=== PATIENT | female | born 1970 | race Caucasian/White ===

== ENCOUNTER → 2018-09-15 | Outpatient (REF) | payer BC ==
[2018-09-15 12:38] LABS: BASO # 0.1 10^3/uL (0.0-0.2); BASO % 0.8 % (0.0-1.0); EOS # 0.2 10^3/uL (0.0-0.50); HEMATOCRIT 41.4 % (36.0-47.0); HEMOGLOBIN 13.7 g/dl (12.0-15.5); MEAN CORPUSCULAR HEMOGLOBIN 29.7 pg (27.0-33.0); MEAN CORPUSCULAR HGB CONC 33.1 g/dl (32.0-36.5); MEAN CORPUSCULAR VOLUME 89.6 fl (80.0-96.0); MONO # 0.4 10^3/uL (0.0-0.8); MONO % 5.5 % (0.0-5.0); NEUTROPHILS # 4.2 10^3/uL (1.8-7.7); NEUTROPHILS % 52.4 % (36.0-66.0); PLATELET COUNT, AUTOMATED 372 10^3/uL (150-450); RED BLOOD COUNT 4.62 10^6/uL (4.00-5.40)
[2018-09-15 12:53] LABS: ALBUMIN 3.8 GM/DL (3.2-5.2); ALT/SGPT 25 U/L (12-78); BILIRUBIN,TOTAL 0.3 MG/DL (0.2-1.0); BLOOD UREA NITROGEN 13 MG/DL (7-18); CALCIUM LEVEL 9.1 MG/DL (8.5-10.1); CARBON DIOXIDE LEVEL 28 MEQ/L (21-32); CHLORIDE LEVEL 104 MEQ/L (98-107); CHOLESTEROL LEVEL 231 MG/DL (<200); CHOLESTEROL RISK RATIO 3.397 (<5); CREATININE FOR GFR 0.76 MG/DL (0.55-1.30); GLOMERULAR FILTRATION RATE > 60.0 (>51); GLUCOSE, FASTING 82 MG/DL (70-100); HDL CHOLESTEROL 68 MG/DL (>40); LDL CHOLESTEROL 149 MG/DL (<100); NON-HDL-C 163 MG/DL; POTASSIUM SERUM 4.5 MEQ/L (3.5-5.1); SODIUM LEVEL 141 MEQ/L (136-145); TRIGLYCERIDES LEVEL 70 MG/DL (<150)
== END ==
LOC: M LABDRAW1 12:07
PROVIDERS: ATTEND Family Medicine
DX: Z00.00 Encounter for general adult medical examination without abnormal findings (principal)

== ENCOUNTER → 2018-10-13 | Outpatient (CLI) | payer BC | LOC: M WUC 15:22 | PROVIDERS: ATTEND Family Medicine | DX: F32.1 Major depressive disorder, single episode, moderate (principal); E55.9 Vitamin D deficiency, unspecified ==

== ENCOUNTER → 2019-02-23 | Outpatient (CLI) | payer BC ==
[2019-02-23 20:11] LABS: BASO # 0.1 10^3/uL (0.0-0.2); BASO % 0.6 % (0.0-1.0); EOS # 0.4 10^3/uL (0.0-0.50); EOS % 3.8 % (0.0-3.0); HEMATOCRIT 40.1 % (36.0-47.0); HEMOGLOBIN 12.9 g/dl (12.0-15.5); LYMPH # 3.7 10^3/uL (1.5-4.5); LYMPH % 38.7 % (24.0-44.0); MEAN CORPUSCULAR HEMOGLOBIN 29.3 pg (27.0-33.0); MEAN CORPUSCULAR HGB CONC 32.2 g/dl (32.0-36.5); MEAN CORPUSCULAR VOLUME 91.1 fl (80.0-96.0); MONO # 0.4 10^3/uL (0.0-0.8); MONO % 4.2 % (0.0-5.0); NEUTROPHILS # 4.9 10^3/uL (1.8-7.7); NEUTROPHILS % 52.5 % (36.0-66.0); PLATELET COUNT, AUTOMATED 360 10^3/uL (150-450); WHITE BLOOD COUNT 9.4 10^3/uL (4.0-10.0)
[2019-02-23 20:25] LABS: RHEUMATOID FACTOR QUANT < 10.0 IU/ML (<15.0); URIC ACID 4.1 MG/DL (2.6-6.0)
[2019-02-23 20:50] LABS: ERYTHROCYTE SEDIMENTATION RATE 12 mm/hr (0-30)
[2019-02-28 14:47] LABS: ANTINUCLEAR ANTIBODIES DIRECT Negative (Negative); HLA-B27 Positive (.); Lyme Disease IgG/IgM Antibodie <0.91 ISR (0.00-0.90); Lyme Disease IgM Ab Quantitati <0.80 index (0.00-0.79)
== END ==
LOC: M WUC 15:23
PROVIDERS: ATTEND Family Medicine
DX: M12.9 Arthropathy, unspecified (principal)

== ENCOUNTER → 2019-07-17 | Outpatient (CLI) | payer BC ==
--- NOTE | 2019-07-18 03:42 | REP ---
Clinical: Pain. Technique: Single frontal view of the pelvis. Findings: The bilateral sacroiliac joints are relatively symmetric and age appropriate. No periarticular erosive changes or osteophyte formation is appreciated. Hip joints appear symmetric and normal. No acute fracture or dislocation. Phleboliths noted in the pelvis. Impression: Essentially age-appropriate examination of the pelvis. Electronically Signed by Dagoberto Miguel MD 07/18/2019 03:33 A
--- NOTE | 2019-07-18 03:51 | REP ---
Clinical: Sacroiliac pain. Technique: AP and lateral views of the lumbosacral spine. Findings: Mild/early moderate multilevel degenerative changes includes endplate sclerosis, hypertrophic facet changes, and elements of disc space narrowing predominantly involving L5-S1 and L4-5. Alignment and lordosis maintained. No acute fracture / compression injury or subluxation. Impression: Age-related changes as above. Electronically Signed by Dagoberto Miguel MD 07/18/2019 03:43 A
== END ==
LOC: M LAB 10:14
PROVIDERS: ATTEND Internal Medicine Rheumatology
DX: M51.36 Other intervertebral disc degeneration, lumbar region (principal); M51.37 Other intervertebral disc degeneration, lumbosacral region; M53.3 Sacrococcygeal disorders, not elsewhere classified; L98.9 Disorder of the skin and subcutaneous tissue, unspecified

== ENCOUNTER → 2019-09-21 | Outpatient (CLI) | payer BC ==
--- NOTE | 2019-09-21 11:53 | REP ---
MRI PELVIS WITHOUT CONTRAST: HISTORY: Chronic pain in the low back, left hip and buttock, and anterior pelvis. TECHNIQUE: Axial, coronal and sagittal imaging planes were utilized. T1- and T2-weighted scans were included with and without fat saturation. MRI FINDINGS: Cortical and medullary bone signal intensity are normal in the proximal femurs, the bony pelvic ring, and the sacrum. There is no evidence of avascular necrosis or sacral ileitis. The symphysis pubis is unremarkable as well. There is subcortical cyst formation in the right iliac bone at the level of the acetabulum consistent with mild arthritis associated cyst at the right hip. This subcortical cyst measures 10 mm in greatest diameter. There is no evidence of significant hip joint effusion. There is some edema in the soft tissues adjacent to the greater trochanters bilaterally which may reflect peritrochanteric tendonitis or bursitis. There is similar edema adjacent to the right ischium. The hamstring insertion tendons appear intact. Urinary bladder is unremarkable. No presacral or retro-sacral soft tissue mass is seen. No bony destructive lesion is seen. There are two sizable fibroids extending from the posterior subserosal surface of the uterus. The largest of these measures 5.9 x 5.6 x 5.8 cm in diameter. The smaller lesion is higher near the fundus measuring 3.2 x 2.8 x 3.2 cm. Endometrial complex is unremarkable. There is a small quantity of cul-de-sac fluid adjacent to the fibroids. On T2-weighted scans, there is a 1.5 cm follicle cyst in the left ovary, which is otherwise unremarkable. The right ovary contains a complex cyst 1.6 cm in diameter and a tiny follicle. No significant ovarian lesion is appreciated on either side. No pelvic mass or adenopathy is seen. No abdominal wall defect is seen. No inguinal adenopathy is observed. IMPRESSION: Fibroid uterus with one large and one medium-sized uterine fibroid positioned posteriorly. Small amount of fluid in the cul-de-sac. Subcortical cyst in the right acetabulum consistent with mild osteoarthritis of the right hip. Peritrochanteric edema consistent with tendonitis or bursitis changes. Electronically Signed by Deonte Mcgee MD 09/22/2019 05:13 A
== END ==
LOC: M RAD 07:09
PROVIDERS: ATTEND Internal Medicine Rheumatology
DX: M54.5 Low back pain (principal)

== ENCOUNTER → 2019-11-05 | Outpatient (CLI) | payer BC ==
--- NOTE | 2019-11-05 10:32 | REP ---
Right hand four views: Mineralization is normal. There is mild PIP and DIP joint space narrowing. The MCP joints and carpal joints are unremarkable. There are no calcifications. No fracture or dislocation. Impression: PIP and DIP mild joint space narrowing. Left hand four views: There is mild PIP and DIP joint space narrowing. The MCP joints and carpal joints are unremarkable. Mineralization is normal. There are no calcifications. No fracture or dislocation. Impression: PIP and DIP mild joint space narrowing. Electronically Signed by Blaze Elizalde MD 11/05/2019 10:23 A
--- NOTE | 2019-11-05 10:33 | REP ---
Right foot four views : There is no fracture or dislocation. Mineralization and joint spaces are normal. There are no calcifications or foreign bodies. There is a small calcaneal plantar spur. Impression: Negative right foot Left foot four views : There is no fracture or dislocation. Mineralization and joint spaces are normal. There are no calcifications or foreign bodies. There is a small calcaneal plantar spur. Impression: Negative left foot . . Electronically Signed by Blaze Elizalde MD 11/05/2019 10:25 A
== END ==
LOC: M WUC 09:31
PROVIDERS: ATTEND Internal Medicine
DX: M25.50 Pain in unspecified joint (principal)

== ENCOUNTER → 2019-11-19 | Outpatient (CLI) | payer BC ==
--- NOTE | 2019-11-19 07:53 | REPVR ---
PROCEDURE INFORMATION: Exam: MR Lumbar Spine Without Contrast. Exam date and time: 11/19/2019 6:50 AM Age: 49 years old Clinical indication: Low back pain; Additional info: Lumbar radiculopathy TECHNIQUE: Imaging protocol: Multiplanar magnetic resonance images of the lumbar spine without intravenous contrast. COMPARISON: CR Spine, Lumbosacral, partial 07/17/2019 11:01 AM FINDINGS: Vertebrae: Alignment is essentially anatomic. The vertebral body heights are maintained. No compression fracture. No suspicious marrow replacing lesions. Spinal cord: The demonstrated cord is normal in signal intensity. The conus medullaris terminates normally. L1-L2: No disc herniation or stenosis. Facets intact. L2-L3: No disc herniation or stenosis. Facets intact. L3-L4: No disc herniation or stenosis. Mild facet degenerative change. The exiting and traversing roots normally demonstrated. L4-L5: Disc desiccation. Annular bulging asymmetric toward the inferior neural foramen on the right with associated annular fissure. The exiting L4 roots are demonstrated and not displaced. The traversing roots are normally demonstrated. Mild to moderate facet degenerative change with ligamentous infolding but epidural fat remains anterolateral and posterior to the sac. L5-S1: Disc desiccation. Left central extruded disc herniation migrating inferiorly into the left lateral recess displacing the traversing roots on the left. The traversing right S1 root is normally seen. The exiting L5 roots are demonstrated. Moderate facet degenerative change with mild ligamentous infolding. No bony stenosis. Soft tissues: No paraspinal soft tissue mass. IMPRESSION: 1. At L5-S1, left central extruded disc herniation migrating inferiorly into the left lateral recess displacing the traversing roots on the left. Moderate facet degenerative change with mild ligamentous infolding. No bony stenosis. 2. At L4-L5, annular bulging asymmetric toward the inferior neural foramen on the right with associated annular fissure. The exiting L4 roots are demonstrated and not displaced. The traversing roots are normally demonstrated. Electronically signed by: Dagoberto Linares On 11/19/2019 07:53:11 AM
== END ==
LOC: M RAD 06:46
PROVIDERS: ATTEND Internal Medicine
DX: M51.26 Other intervertebral disc displacement, lumbar region (principal); M54.16 Radiculopathy, lumbar region

== ENCOUNTER → 2020-02-11 | Outpatient (CLI) | payer BC ==
[2020-02-11 12:05] LABS: ALBUMIN 4.1 GM/DL (3.2-5.2); ALT/SGPT 24 U/L (12-78); BILIRUBIN,TOTAL 0.3 MG/DL (0.2-1.0); BLOOD UREA NITROGEN 6 MG/DL (7-18); CALCIUM LEVEL 9.8 MG/DL (8.5-10.1); CARBON DIOXIDE LEVEL 30 MEQ/L (21-32); CHLORIDE LEVEL 105 MEQ/L (98-107); CHOLESTEROL LEVEL 264 MG/DL (<200); CREATININE FOR GFR 0.89 MG/DL (0.55-1.30); GLOMERULAR FILTRATION RATE > 60.0 (>51); GLUCOSE, FASTING 92 MG/DL (70-100); HDL CHOLESTEROL 60 MG/DL (>40); LDL CHOLESTEROL 177 MG/DL (<100); NON-HDL-C 204 MG/DL; POTASSIUM SERUM 4.9 MEQ/L (3.5-5.1); SODIUM LEVEL 142 MEQ/L (136-145); TOTAL 25(OH) VITAMIN D 54.9 NG/ML (30.0-100.0); TOTAL PROTEIN 7.7 GM/DL (6.4-8.2); TRIGLYCERIDES LEVEL 134 MG/DL (<150)
== END ==
LOC: M WUC 09:56
PROVIDERS: ATTEND Physician Assistant
DX: Z00.00 Encounter for general adult medical examination without abnormal findings (principal); E55.9 Vitamin D deficiency, unspecified; R53.83 Other fatigue

== ENCOUNTER → 2020-02-11 | Outpatient (CLI) | payer BC ==
--- NOTE | 2020-02-18 09:36 | SLEEPHOME ---
DATE OF STUDY: 02/11/2020 ORDERED BY: SUSI Navarrete Diagnostic home sleep testing was performed due to concern for the obstructive sleep apnea syndrome in this patient with a history of fatigue. For testing, a nocturnal T3 respiratory monitoring device was used. Continuous record was made of pulse, oxygen saturation, airflow, chest and abdominal strain and body position. 9 hours of data were reviewed. There were 5 hours and 7 minutes marked as time in bed. During the interval marked time in bed, there were 75 respiratory events identified of 10 seconds in duration or greater for a respiratory event index of 14.7. The events were primarily obstructive, baseline 20. Mixed and central apneas were seen. Baseline pulse rate 76 beats per minute, pulse rate ranged 67-94. Baseline saturation 94%, saturations fell to 89%. Testing was performed in both the supine and nonsupine positions. IMPRESSION: Abnormal home sleep testing with repetitive respiratory events and oxygen desaturations to 89% with a respiratory event index of 14.7 is consistent with the obstructive sleep apnea syndrome. RECOMMENDATION: The patient should be encouraged to undergo formal sleep evaluation.
== END ==
LOC: M SLEEP HO 10:22
PROVIDERS: ATTEND Physician Assistant
DX: R53.83 Other fatigue (principal); G47.9 Sleep disorder, unspecified

== ENCOUNTER 2020-11-17 16:01 | Emergency (ER) | payer OTHER, BC ==
[~2020-11-17] VITALS: Ht 175.3 cm; Wt 86.9 kg
[2020-11-17] MEDS ORDERED: BUPR300T92 (16:31)
[2020-11-17] MEDS ORDERED: MELO7.5T35 (16:31)
[2020-11-17] MEDS ORDERED: ESCITALOPRAM (16:31)
[2020-11-17] MEDS ORDERED: PROG1CAP9 (16:31)
[2020-11-17] MEDS ORDERED: GABA-282 (16:31)
[2020-11-17] MEDS ORDERED: MORPHINE 4 MG/ML 1ML VIAL/SYRINGE (J2270) IV ONE (16:50)
[2020-11-17] MEDS ORDERED: LIDOCAINE 1% MDV 20ML VIAL SC ONE (18:10)
--- NOTE | 2020-11-17 18:26 | REP ---
INDICATION: [facility]. COMPARISON: None. TECHNIQUE: Three views of the left hand are provided. FINDINGS: There are dislocations of the PIP joints of the left 3rd and 4th digits with dorsal displacement of the middle phalanges and some dorsal overriding. No fracture is evident on these radiographs. Overall mineralization pattern is normal. There is minimal osteoarthritic spurring at the DIP joint of the small finger. IMPRESSION: Dorsal dislocation of the PIP joints of the 3rd and 4th digits. No visible fracture. <Electronically signed by Billy Mcgee > 11/17/20 [id number]
[2020-11-17 19:28] VITALS: BP 162/83
--- NOTE | 2020-11-18 11:42 | REP ---
INDICATION: post reduction xray COMPARISON: 11/17/2020, 11/05/2019. TECHNIQUE: Four views left 3rd and 4th digits. FINDINGS: There is successful reduction of the dislocations at the 3rd and 4th proximal interphalangeal joints. No acute fracture is seen. A small smoothly marginated calcific density at the anterior base of the 3rd distal phalanx is unchanged since 11/05/2019 and may represent an old avulsion fracture. IMPRESSION: Successful reduction of the dislocations at the 3rd and 4th proximal interphalangeal joints. No acute fracture. Preliminary report provided by [facility] at the time of the exam. <Electronically signed by Blaze Aguilar > 11/18/20 [id number]
== END 2020-11-17 22:34 | disposition home or self-care (01) ==
LOC: M ED 16:01
DX: S63.253A Unspecified dislocation of left middle finger, initial encounter (principal); S63.255A Unspecified dislocation of left ring finger, initial encounter; S61.205A Unspecified open wound of left ring finger without damage to nail, initial encounter; W01.0XXA Fall on same level from slipping, tripping and stumbling without subsequent striking against object, initial encounter; Y92.018 Other place in single-family (private) house as the place of occurrence of the external cause; F17.210 Nicotine dependence, cigarettes, uncomplicated
CPT/HCPCS: 26770; 73140; 96374; 99283; J2270

== ENCOUNTER → 2020-12-01 | Outpatient (CLI) | payer OTHER, BC ==
[~2020-12-01] MED LIST: BUPR300T92; ESCITALOPRAM; GABA-282; MELO7.5T35; PROG1CAP9
--- NOTE | 2020-12-01 12:12 | REP ---
INDICATION: F/U FX. COMPARISON: Bilateral hand series dated 09/04/2020. TECHNIQUE: There are four views of the left middle and ring fingers. FINDINGS: On the lateral view of the middle finger there is a small calcification anterior to the DIP joint line. This is unchanged from the prior study and can represent an old avulsion or an accessory ossicle. The DIP and PIP joints of the left ring and middle fingers are mildly narrowed, as previously, compatible with early osteoarthritic change. There are no other calcifications. No fracture or dislocation. The MC P articulations are unremarkable and unchanged. IMPRESSION: Old avulsion versus accessory ossicle along the anterior joint line of the middle finger DIP, unchanged. Narrowing of the DIP and PIP joint spaces compatible with early osteoarthritic change. <Electronically signed by Blaze Elizalde > 12/01/20 [id number]
== END ==
LOC: M SOG 10:48
PROVIDERS: ATTEND Orthopaedic Surgery Sports Medicine
DX: S63.233A Subluxation of proximal interphalangeal joint of left middle finger, initial encounter (principal); X58.XXXA Exposure to other specified factors, initial encounter; Y92.29 Other specified public building as the place of occurrence of the external cause; Y93.9 Activity, unspecified; Y99.9 Unspecified external cause status

== ENCOUNTER → 2020-12-19 | Outpatient (CLI) | payer OTHER, BC ==
--- NOTE | 2020-12-19 09:17 | REP ---
INDICATION: F/U. COMPARISON: 12/01/2020 TECHNIQUE: AP, lateral, bilateral oblique views of the left 3rd and 4th digits. FINDINGS: There is no evidence for acute fracture or dislocation. Small calcified density along the volar aspect of the 3rd digit DIP joint remains unchanged from prior examination and is likely chronic. Small calcification along the volar aspect of the 3rd digit PIP joint is nonspecific and may represent old fracture fragment. IMPRESSION: No evidence for acute fracture or dislocation. <Electronically signed by Dagoberto Miguel > 12/19/20 0914
== END ==
LOC: M SOG 08:37
PROVIDERS: ATTEND Orthopaedic Surgery Sports Medicine
DX: M25.551 Pain in right hip (principal); S63.283D Dislocation of proximal interphalangeal joint of left middle finger, subsequent encounter; S63.285D Dislocation of proximal interphalangeal joint of left ring finger, subsequent encounter; Y92.9 Unspecified place or not applicable; Y93.9 Activity, unspecified; Y99.9 Unspecified external cause status

== ENCOUNTER → 2021-04-09 | Outpatient (REF) | payer BC ==
[2021-04-09 20:54] LABS: ESTRADIOL 58.6 PG/ML; FOLLICLE STIMULATING HORMONE 20.5 mIU/mL; LUTEINIZING HORMONE 7.5 mIU/mL; PROGESTERONE 0.21 NG/ML
== END ==
LOC: M LAB REF 20:18
PROVIDERS: ATTEND Obstetrics & Gynecology
DX: N95.1 Menopausal and female climacteric states (principal); E34.9 Endocrine disorder, unspecified; R53.83 Other fatigue

== ENCOUNTER → 2021-08-21 | Outpatient (CLI) | payer BC ==
--- NOTE | 2021-08-21 09:11 | REP ---
INDICATION: CONTUSION COMPARISON: None. TECHNIQUE: AP, lateral, bilateral oblique views left 4th toe. FINDINGS: Very subtle nondisplaced oblique fracture through the proximal phalanx. Remainder of the examination appears normal. IMPRESSION: Very subtle nondisplaced oblique fracture 4th toe proximal phalanx. <Electronically signed by Dagoberto Miguel > 08/21/21 0906
== END ==
LOC: M WUC 08:43
PROVIDERS: ATTEND Physician Assistant
DX: S92.512A Displaced fracture of proximal phalanx of left lesser toe(s), initial encounter for closed fracture (principal); X58.XXXA Exposure to other specified factors, initial encounter; Y92.89 Other specified places as the place of occurrence of the external cause; Y93.89 Activity, other specified; Y99.8 Other external cause status

== ENCOUNTER → 2021-09-16 | Outpatient (CLI) | payer BC ==
[2021-09-16 10:57] LABS: ALBUMIN 3.9 GM/DL (3.2-5.2); ALT/SGPT 31 U/L (12-78); BILIRUBIN,TOTAL 0.3 MG/DL (0.2-1.0); BLOOD UREA NITROGEN 9 MG/DL (7-18); CALCIUM LEVEL 9.2 MG/DL (8.5-10.1); CARBON DIOXIDE LEVEL 28 MEQ/L (21-32); CHLORIDE LEVEL 107 MEQ/L (98-107); CHOLESTEROL LEVEL 238 MG/DL (<200); CHOLESTEROL RISK RATIO 3.777 (<5); CREATININE FOR GFR 0.76 MG/DL (0.55-1.30); GLOMERULAR FILTRATION RATE > 60.0 (>51); GLUCOSE, FASTING 92 MG/DL (70-100); HDL CHOLESTEROL 63 MG/DL (>40); LDL CHOLESTEROL 157 MG/DL (<100); NON-HDL-C 175 MG/DL; POTASSIUM SERUM 4.7 MEQ/L (3.5-5.1); SODIUM LEVEL 140 MEQ/L (136-145); TRIGLYCERIDES LEVEL 88 MG/DL (<150)
[2021-09-16 11:05] LABS: TOTAL 25(OH) VITAMIN D 23.3 NG/ML (30.0-100.0)
== END ==
LOC: M WUC 09:08
PROVIDERS: ATTEND Nurse Practitioner Family
DX: Z00.00 Encounter for general adult medical examination without abnormal findings (principal); E55.9 Vitamin D deficiency, unspecified

== ENCOUNTER → 2022-03-14 | Outpatient (CLI) | payer BC ==
[~2022-03-14] MED LIST changes: -BUPR300T92; +BUPR300T92 PO; -GABA-282; +GABA-282 PO; +LEXA1TAB2 PO; -MELO7.5T35; +MELO7.5T35 PO
== END ==
LOC: M LABSMTC 09:33
PROVIDERS: ATTEND Anesthesiology
DX: Z11.52 Encounter for screening for COVID-19 (principal); Z20.822 Contact with and (suspected) exposure to COVID-19

== ENCOUNTER 2022-03-17 08:44 | Day surgery (SDC) | payer BC ==
[~2022-03-17] VITALS: Ht 172.7 cm; Wt 84.8 kg
[~2022-03-17 08:44] MED LIST changes: +NS 1,000 ML IV ONE
[2022-03-17] MEDS ORDERED: propofoL 200 MG/20 ML VIAL As Ordered ONE (09:47)
[2022-03-17] MEDS ORDERED: LIDOCAINE 2% INJ 100 MG/5 ML SYRINGE As Ordered ONE (09:47)
[2022-03-17 10:17] VITALS: BP 131/77
== END 2022-03-17 10:24 | disposition home or self-care (01) ==
LOC: M OPP 08:44
PROVIDERS: ATTEND Surgery
DX: Z12.11 Encounter for screening for malignant neoplasm of colon (principal); K63.5 Polyp of colon; K64.1 Second degree hemorrhoids; F17.210 Nicotine dependence, cigarettes, uncomplicated; Z79.899 Other long term (current) drug therapy

== ENCOUNTER → 2022-09-17 | Outpatient (CLI) | payer BC ==
[~2022-09-17] MED LIST changes: -NS 1,000 ML IV ONE
[2022-09-17 12:57] LABS: ALKALINE PHOSPHATASE 100 U/L (46-116); ALT/SGPT 36 U/L (7.0-40); AST/SGOT 30 U/L (<34); BILIRUBIN,TOTAL 0.3 MG/DL (0.3-1.2); BLOOD UREA NITROGEN 6 MG/DL (9-23); CALCIUM LEVEL 9.8 MG/DL (8.5-10.1); CARBON DIOXIDE LEVEL 28 MMOL/L (20-31); CHLORIDE LEVEL 106 MMOL/L (98-107); CHOLESTEROL LEVEL 254 MG/DL (<200); CHOLESTEROL RISK RATIO 3.93 (<5); CREATININE FOR GFR 0.74 MG/DL (0.55-1.30); GLOMERULAR FILTRATION RATE > 60.0 (>51); GLUCOSE, FASTING 89 MG/DL (60-100); HDL CHOLESTEROL 64.6 MG/DL (>40); LDL CHOLESTEROL 165.4 MG/DL (<100); NON-HDL-C 189 MG/DL; POTASSIUM SERUM 4.6 MMOL/L (3.5-5.1); SODIUM LEVEL 141 MMOL/L (136-145); TOTAL PROTEIN 6.6 G/DL (5.7-8.2); TRIGLYCERIDES LEVEL 120 MG/DL (<150)
[2022-09-17 12:59] LABS: TOTAL 25(OH) VITAMIN D 26.3 NG/ML (20.0-100.0)
== END ==
LOC: M WUC 09:21
PROVIDERS: ATTEND Nurse Practitioner Family
DX: E78.2 Mixed hyperlipidemia (principal); E55.9 Vitamin D deficiency, unspecified

== ENCOUNTER → 2023-10-05 | Outpatient (CLI) | payer BC ==
[2023-10-05 12:28] LABS: BASO # 0.1 10^3/uL (0.0-0.2); BASO % 0.6 % (0.0-1.0); EOS # 0.3 10^3/uL (0.0-0.5); EOS % 2.8 % (0.0-3.0); HEMATOCRIT 41.5 % (36.0-47.0); HEMOGLOBIN 13.9 g/dl (12.0-15.5); LYMPH # 2.9 10^3/uL (1.5-5.0); LYMPH % 32.6 % (24.0-44.0); MEAN CORPUSCULAR HEMOGLOBIN 30.8 pg (27.0-33.0); MEAN CORPUSCULAR HGB CONC 33.5 g/dl (32.0-36.5); MEAN CORPUSCULAR VOLUME 91.8 fl (80.0-96.0); MONO # 0.5 10^3/uL (0.0-0.8); MONO % 5.4 % (2.0-8.0); NEUTROPHILS # 5.2 10^3/uL (1.5-8.5); NEUTROPHILS % 58.4 % (36.0-66.0); PLATELET COUNT, AUTOMATED 374 10^3/uL (150-450); RED BLOOD COUNT 4.52 10^6/uL (4.00-5.40); WHITE BLOOD COUNT 8.8 10^3/uL (4.0-10.0)
[2023-10-05 13:00] LABS: THYROID STIMULATING HORMONE 1.626 uIU/ML (0.55-4.78)
[2023-10-05 13:01] LABS: ALBUMIN 4.2 G/DL (3.2-5.2); ALKALINE PHOSPHATASE 94 U/L (46-116); ALT/SGPT 26 U/L (7.0-40); AST/SGOT 21 U/L (<34); BILIRUBIN,TOTAL 0.4 MG/DL (0.3-1.2); BLOOD UREA NITROGEN 7 MG/DL (9-23); CALCIUM LEVEL 9.7 MG/DL (8.5-10.1); CARBON DIOXIDE LEVEL 30 MMOL/L (20-31); CHLORIDE LEVEL 107 MMOL/L (98-107); CHOLESTEROL LEVEL 224 MG/DL (<200); CHOLESTEROL RISK RATIO 3.88 (<5); CREATININE FOR GFR 0.89 MG/DL (0.55-1.30); GLOMERULAR FILTRATION RATE > 60.0 (>51); GLUCOSE, FASTING 78 MG/DL (60-100); HDL CHOLESTEROL 57.6 MG/DL (>40); LDL CHOLESTEROL 144.2 MG/DL (<100); NON-HDL-C 166.4 MG/DL; POTASSIUM SERUM 5.5 MMOL/L (3.5-5.1); SODIUM LEVEL 140 MMOL/L (136-145); TOTAL 25(OH) VITAMIN D 48.7 NG/ML (20.0-100.0); TOTAL PROTEIN 6.6 G/DL (5.7-8.2); TRIGLYCERIDES LEVEL 111 MG/DL (<150)
[2023-10-05 13:02] LABS: FREE T4 1.07 NG/DL (0.89-1.76)
== END ==
LOC: M WUC 08:36
PROVIDERS: ATTEND Nurse Practitioner Family
DX: Z00.00 Encounter for general adult medical examination without abnormal findings (principal); E78.2 Mixed hyperlipidemia; E55.9 Vitamin D deficiency, unspecified

== ENCOUNTER 2023-12-02 12:28 | Emergency (ER) | payer BC ==
[~2023-12-02] VITALS: Ht 175.3 cm; Wt 39.3 kg
[2023-12-02 13:27] LABS: HEMATOCRIT 46.3 % (36.0-47.0); HEMOGLOBIN 15.9 g/dl (12.0-15.5); MEAN CORPUSCULAR HEMOGLOBIN 29.9 pg (27.0-33.0); MEAN CORPUSCULAR HGB CONC 34.3 g/dl (32.0-36.5); MEAN CORPUSCULAR VOLUME 87.2 fl (80.0-96.0); PLATELET COUNT, AUTOMATED 456 10^3/uL (150-450); RED BLOOD COUNT 5.31 10^6/uL (4.00-5.40); WHITE BLOOD COUNT 12.9 10^3/uL (4.0-10.0)
[2023-12-02 13:53] LABS: ETHYL ALCOHOL (ETHANOL) 0.007 % (0.000-0.010)
[2023-12-02 13:54] LABS: SALICYLATE LEVEL < 3.0 MG/DL (<30)
[2023-12-02 13:58] LABS: ALBUMIN 4.4 G/DL (3.2-5.2); ALKALINE PHOSPHATASE 109 U/L (46-116); ALT/SGPT 50 U/L (7.0-40); AST/SGOT 38 U/L (<34); BILIRUBIN,DIRECT 0.1 MG/DL (<0.4); BILIRUBIN,TOTAL 0.5 MG/DL (0.3-1.2); BLOOD UREA NITROGEN 13 MG/DL (9-23); CALCIUM LEVEL 10.1 MG/DL (8.5-10.1); CARBON DIOXIDE LEVEL 26 MMOL/L (20-31); CHLORIDE LEVEL 105 MMOL/L (98-107); CREATININE FOR GFR 0.82 MG/DL (0.55-1.30); GLOMERULAR FILTRATION RATE > 60.0 (>51); GLUCOSE, FASTING 115 MG/DL (60-100); POTASSIUM SERUM 4.1 MMOL/L (3.5-5.1); SODIUM LEVEL 137 MMOL/L (136-145); THYROID STIMULATING HORMONE 2.402 uIU/ML (0.55-4.78); TOTAL PROTEIN 7.3 G/DL (5.7-8.2)
[2023-12-02 14:04] LABS: BARBITURATES URINE NEGATIVE (NEGATIVE); BENZODIAZEPINES URINE NEGATIVE (NEGATIVE); CANNABINOIDS URINE NEGATIVE (NEGATIVE); COCAINE METABOLITE URINE NEGATIVE (NEGATIVE); METHADONE URINE NEGATIVE (NEGATIVE); OPIATES URINE NEGATIVE (NEGATIVE); PHENCYCLIDINE URINE NEGATIVE (NEGATIVE)
[2023-12-02 14:05] LABS: AMPHETAMINES LEVEL URINE POSITIVE (NEGATIVE)
[2023-12-02] MEDS ORDERED: NAPR-885 PO (15:00)
[2023-12-02] MEDS ORDERED: HOME MED LIST COMPLETE! XX SCH ×2 (15:00→15:10)
[2023-12-02] MEDS ORDERED: ERGO500029 PO (15:00)
[2023-12-02] MEDS ORDERED: METH-1164 PO (15:00)
[2023-12-03] MEDS: buPROPion **XL** TABLET 150MG (WELLBUTRIN XL) PO SCH (08:17)
[2023-12-03] MEDS: ESCITALOPRAM OXALATE 10 MG TAB (LEXAPRO) PO SCH (08:17)
[2023-12-03] MEDS: ACETAMINOPHEN TAB 650MG DOSE (2X325MG) PO ONE (17:21)
[2023-12-03] MEDS: diphenhydrAMINE 25MG CAP PO ONE (22:01)
[2023-12-04] MEDS: ACETAMINOPHEN TAB 650MG DOSE (2X325MG) PO ONE (11:31)
[2023-12-04] MEDS: NICOTINE 21MG/24HR 1 EA TRANSDERMAL TD ONE (12:45)
[2023-12-04 13:40] VITALS: BP 154/88; TEMP 99.2; O2SAT 99
== END 2023-12-04 13:41 | disposition home or self-care (01) ==
LOC: M ED 12:28
DX: F43.20 Adjustment disorder, unspecified (principal); F41.9 Anxiety disorder, unspecified; F32.A Depression, unspecified; Z79.899 Other long term (current) drug therapy

== ENCOUNTER → 2024-01-09 | Outpatient (CLI) | payer BC ==
[~2024-01-09] MED LIST changes: +BUPR-597 PO; -BUPR300T92 PO; +ERGO500029 PO; +METH-1164 PO; +NAPR-885 PO
== END ==
LOC: M WUC 12:57
PROVIDERS: ATTEND Nurse Practitioner Family
DX: M25.551 Pain in right hip (principal)

== ENCOUNTER → 2024-10-09 | Outpatient (CLI) | payer BC ==
[~2024-10-09] MED LIST changes: +GABA-1172 PO; -GABA-282 PO
[2024-10-09 09:43] LABS: ALBUMIN 3.9 G/DL (3.2-5.2); ALKALINE PHOSPHATASE 116 U/L (35-104); ALT/SGPT 39 U/L (7.0-40); AST/SGOT 23 U/L (<34); BILIRUBIN,TOTAL 0.3 MG/DL (0.3-1.2); BLOOD UREA NITROGEN 10 MG/DL (9-23); CALCIUM LEVEL 9.2 MG/DL (8.5-10.1); CARBON DIOXIDE LEVEL 31 MMOL/L (20-31); CHLORIDE LEVEL 105 MMOL/L (98-107); CHOLESTEROL LEVEL 247 MG/DL (<200); CHOLESTEROL RISK RATIO 4.27 (<5); CREATININE FOR GFR 0.88 MG/DL (0.55-1.30); GLOMERULAR FILTRATION RATE > 60.0 (>51); GLUCOSE, FASTING 95 MG/DL (60-100); HDL CHOLESTEROL 57.8 MG/DL (>40); LDL CHOLESTEROL 163.8 MG/DL (<100); NON-HDL-C 189.2 MG/DL; POTASSIUM SERUM 4.9 MMOL/L (3.5-5.1); SODIUM LEVEL 141 MMOL/L (136-145); TOTAL PROTEIN 6.8 G/DL (5.7-8.2); TRIGLYCERIDES LEVEL 127 MG/DL (<150)
[2024-10-09 09:46] LABS: TOTAL 25(OH) VITAMIN D 52.5 NG/ML (20.0-100.0)
== END ==
LOC: M WUC 08:06
PROVIDERS: ATTEND Nurse Practitioner Family
DX: E78.2 Mixed hyperlipidemia (principal); E55.9 Vitamin D deficiency, unspecified